=== PATIENT | female | born 1945 | race Caucasian/White ===

== ENCOUNTER → 2017-09-15 | Outpatient (CLI) | payer OTHER, MEDICARE | LOC: FIMAGING 14:52 | PROVIDERS: ATTEND Nurse Practitioner | DX: R07.81 Pleurodynia (principal); M51.34 Other intervertebral disc degeneration, thoracic region; Z85.3 Personal history of malignant neoplasm of breast ==

== ENCOUNTER 2017-12-18 14:25 | Day surgery (SDC) | payer OTHER ==
[~2017-12-18 14:25] MED LIST: ALTEPLASE 2 MG VIAL IVP PRN; FLUMAZENIL 0.5 MG/5 ML MDV IVP PRN; GLUCAGON HCL 1 MG VIAL IVP PRN; HEPARIN 10,000 UNIT/10 ML MDV (1,000 UNIT/ML) IVP PRN; MEPERIDINE 25 MG/ML SYR IVP PRN; MIDAZOLAM 2 MG/2 ML VIAL IVP PRN; NALOXONE HCL 0.4 MG/ML INJ IVP PRN; NS 1,000 ML IV SCH; PROTAMINE SULFATE 50 MG/5 ML VIAL IVP PRN; fentaNYL 100 MCG/2 ML INJ IVP PRN
[2017-12-18 15:39] VITALS: RESP 16
--- NOTE | 2017-12-18 15:58 | PDGENHP ---
History & Physical Chief Complaint: MANY BONE METS History of Present Illness: 2004 DX OF BREAST CA. NOW WITH POSSIBLE RECURRENCE. Pertinent Past, Social, Family History: MASTECTOMY LT. REVISED RT. BACK SURGERY. COLONOSCOPY. Relevant Physical Exam: NOT IN DISTRESS. Cardiorespiratory Assessment: RRR. CTA
--- NOTE | 2017-12-18 15:59 | PDPROPOC ---
Sedation Plan of Care Sedation Plan of Care: vital signs stable, mental status noted, patient educated of risks, benefits, alternatives, patient can tolerate sedation ASA Classification: ASA 2 Planned drugs: fentanyl, midazolam Mallampati Score: Class 2 Mallampati Reference Image: Patient passed 3-3-2 rule?: Yes
[2017-12-18] MEDS ORDERED: FLUMAZENIL 0.5 MG/5 ML MDV IVP ONE (16:12)
[2017-12-18] MEDS ORDERED: NALOXONE HCL 0.4 MG/ML INJ ONE (16:12)
[2017-12-18] MEDS ORDERED: fentaNYL 100 MCG/2 ML INJ ONE (16:13)
[2017-12-18] MEDS ORDERED: MIDAZOLAM 2 MG/2 ML VIAL ONE (16:13)
[2017-12-18] MEDS ORDERED: ONDANSETRON 4 MG/2 ML VIAL IVP PRN (17:07)
[2017-12-18] MEDS ORDERED: ACETAMINOPHEN 325 MG TAB PO PRN (17:07)
--- NOTE | 2017-12-18 17:08 | PDRADPN ---
Radiology Procedure Note Date of Procedure: 12/18/17 Radiologist: Gaby Morrison Anesthesia: IV Sedation Pre-op Diagnosis: bone mets Post-op Diagnosis: same Indication: h/o breast ca. r/o recurrence Procedure: CT guided bone biopsy Finding(s): see report Inf/Abcess present in the surg proc area at time of surgery?: No EBL: Minimal Complications: none
[2017-12-18 17:25] VITALS: BP 158/94; PULSE 61; O2SAT 100
[2017-12-18 18:39] VITALS: TEMP 98.4
== END 2017-12-18 18:20 | disposition home or self-care (01) ==
LOC: FIMAGING 14:25
PROVIDERS: ATTEND Internal Medicine Hematology & Oncology
PROC: 0QB33ZX Excision of Left Pelvic Bone, Percutaneous Approach, Diagnostic (ICD-10-PCS; principal; 2017-12-18 17:17)
DX: C79.51 Secondary malignant neoplasm of bone (principal); Z85.3 Personal history of malignant neoplasm of breast
CPT/HCPCS: J2250; J2310; J3010

== ENCOUNTER → 2018-01-20 | Outpatient (CLI) | payer OTHER | LOC: BMCIMAGING 12:28 | PROVIDERS: ATTEND Internal Medicine Hematology & Oncology | DX: Z13.820 Encounter for screening for osteoporosis (principal); M85.89 Other specified disorders of bone density and structure, multiple sites; I10 Essential (primary) hypertension; C50.512 Malignant neoplasm of lower-outer quadrant of left female breast; C79.52 Secondary malignant neoplasm of bone marrow ==